=== PATIENT | female | born 2000 | race Caucasian/White ===

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

== ENCOUNTER 2018-10-19 06:46 | Day surgery (SDC) | payer BC ==
[~2018-10-19 06:46] MED LIST: Lactated Ringers 1,000 ML IV SCH; ceFAZolin 2 GM in Premix Bag 1 BAG IV ONE
[2018-10-19] MEDS ORDERED: Propofol 200 MG/20 ML SDV ONE (07:22)
[2018-10-19] MEDS ORDERED: fentaNYL 250 MCG/5 ML SDV ONE (07:22)
[2018-10-19] MEDS ORDERED: Lidocaine 2% 5 ML SDV ONE (07:24)
[2018-10-19] MEDS ORDERED: Ondansetron 4 MG/2 ML SDV IVPUSH ONE (07:27)
[2018-10-19] MEDS ORDERED: Meperidine PF 25 MG/ML Syringe IVPUSH ONE (07:27)
[2018-10-19] MEDS ORDERED: fentaNYL 100 MCG/2 ML SDV IVPUSH PRN (07:27)
[2018-10-19] MEDS ORDERED: HYDROmorphone 2 MG/ML SDV IVPUSH ONE (07:27)
[2018-10-19] MEDS ORDERED: Bupivacaine 0.25% 10 ML SDV ONE (07:29)
[2018-10-19] MEDS ORDERED: ceFAZolin/Dextrose,Iso-Osmotic 2 GM/50 ML Duplex Bag IV ONE (07:31)
[2018-10-19] MEDS ORDERED: Rocuronium 100 MG/10 ML Syringe ONE (07:33)
[2018-10-19] MEDS ORDERED: Ondansetron 4 MG/2 ML SDV ONE (07:40)
--- NOTE | 2018-10-19 07:42 | PCM.PREANE ---
Preanesthetic Assessment - Anesthesia/Transfusion/Family Hx Anesthesia History: Prior Anesthesia Without Reaction Family History of Anesthesia Reaction: No Transfusion History: No Prior Transfusion(s) - Review of Systems General: No Symptoms Pulmonary: No Symptoms Cardiovascular: No Symptoms Gastrointestinal: No Symptoms Neurological: No Symptoms Other: Reports: Anxiety - Physical Assessment NPO Status Date: 10/18/18 NPO Status Time: 19:00 O2 Sat by Pulse Oximetry: 100 Respiratory Rate: 16 Vital Signs: Last Vital Signs Temp 97.0 F 10/19/18 07:00 Pulse 73 10/19/18 07:00 Resp 16 10/19/18 07:00 BP 12/67 L 10/19/18 07:00 Pulse Ox 100 10/19/18 07:00 Height: 5 ft 3 in Weight: 82.1 kg ASA Class: 2 Mental Status: Alert & Oriented x3 Airway Class: Mallampati = 2 Dentition: Reports: Normal Dentition ROM/Head Extension: Full Lungs: Clear to Auscultation, Normal Respiratory Effort Cardiovascular: Regular Rate, Regular Rhythm - Lab Values: Laboratory Last Values WBC 6.40 K/uL (4.0-11.0) 10/19/18 07: RBC 4.04 M/uL (4.30-5.90) L 10/19/18 07: Hgb 12.0 g/dL (12.0-16.0) 10/19/18 07:19 Hct 35.7 % (36.0-46.0) L 10/19/18 07:19 MCV 88.4 fL (80.0-98.0) 10/19/18 07: MCH 29.7 pg (27.0-32.0) 10/19/18 07:19 MCHC 33.6 g/dL (31.0-37.0) 10/19/18 07:19 RDW Std Deviation 40.2 fl (28.0-62.0) 10/19/18 07: RDW Coeff of [place] 13 % (11.0-15.0) 10/19/18 07:19 Plt Count 267 K/uL (150-400) 10/19/18 07:19 MPV 10.20 fL (7.40-12.00) 10/19/18 07:19 Nucleated RBC % 0.0 /100WBC 10/19/18 07:19 Nucleated RBCs # 0 K/uL 10/19/18 07:19 - Allergies Allergies/Adverse Reactions: Allergies Allergy/AdvReac Type Severity Reaction Status Date / Time lactose Allergy Diarrhea Verified 10/14/18 13:26 - Blood Blood Available: No - Anesthesia Plan Pre-Op Medication Ordered: None - Acknowledgements Anesthesia Type Planned: General Anesthesia Pt an Appropriate Candidate for the Planned Anesthesia: Yes Alternatives and Risks of Anesthesia Discussed w Pt/Guardian: Yes Pt/Guardian Understands and Agrees with Anesthesia Plan: Yes Additional Comments: PMH: IBS-D, "vaping" PLAN: GET PreAnesthesia Questionnaire HEENT History: Reports: None Cardiovascular History: Reports: None Respiratory History: Reports: None Gastrointestinal History: Reports: Irritable Bowel Syndrome Genitourinary History: Reports: None CYBER SECURITY ARCHITECT History: Reports: None Musculoskeletal History: Reports: None Neurological History: Reports: None Psychiatric History: Reports: Anxiety, Depression Endocrine/Metabolic History: Reports: None, Obesity/BMI 30+ Hematologic History: Reports: None Immunologic History: Reports: None Oncologic (Cancer) History: Reports: None Dermatologic History: Reports: None - Infectious Disease History Infectious Disease History: Reports: Chicken Pox - Past Surgical History GI Surgical History: Reports: Cholecystectomy - SUBSTANCE USE Smoking Status *Q: Current Every Day Smoker Tobacco Use Within Last Twelve Months: Other (See Below) Other Tobacco Use Within Last Twelve Months: Vapes Recreational Drug Use History: No - HOME MEDS Home Medications: Home Meds medroxyPROGESTERone Acetate [Depo-Provera] 150 mg IM ASDIRECTED 10/14/18 [ History] - CURRENT (IN HOUSE) MEDS Current Meds: Current Medications Fentanyl (Sublimaze) 50 mcg IVPUSH Q5M PRN PRN Reason: Pain (severe 7-10) Stop: 10/20/18 07:28 Lactated Ringer's (Ringers, Lactated) 1,000 mls @ 100 mls/hr IV ASDIRECTED [facility] Last Admin: 10/19/18 07:15 Dose: 100 mls/hr Discontinued Medications Bupivacaine HCl (Sensorcaine-Mpf 0.25%) Confirm Administered Dose 20 ml .ROUTE .STK-MED ONE Stop: 10/19/18 07:30 Cefazolin Sodium/Dextrose (Ancef) Confirm Administered Dose 2 gm IV .STK-MED ONE Stop: 10/19/18 07:32 Fentanyl (Sublimaze) Confirm Administered Dose 250 mcg .ROUTE .STK-MED ONE Stop: 10/19/18 07:23 Hydromorphone HCl (Dilaudid) 2 mg IVPUSH ONETIME ONE Stop: 10/19/18 07:28 Cefazolin Sodium/Dextrose 2 gm (/ Premix) 50 mls @ 100 mls/hr IV ONETIME ONE Stop: 10/19/18 06:49 Lidocaine (Xylocaine-Mpf 2%) Confirm Administered Dose 5 ml .ROUTE .STK-MED ONE Stop: 10/19/18 07:25 Meperidine HCl (Demerol) 12.5 mg IVPUSH ONETIME ONE Stop: 10/19/18 07:28 Ondansetron HCl (Zofran) 4 mg IVPUSH ONETIME ONE Stop: 10/19/18 07:28 Propofol (Diprivan 20 Ml) Confirm Administered Dose 200 mg .ROUTE .STK-MED ONE Stop: 10/19/18 07:23 Rocuronium Pike (Zemuron) Confirm Administered Dose 100 mg .ROUTE .STK-MED ONE Stop: 10/19/18 07:34
[2018-10-19 07:45] LABS: CHLORIDE,CL 108 mmol/L (98-107); SODIUM,NA 143 mmol/L (136-145)
[2018-10-19] MEDS ORDERED: Midazolam 1 MG/ML 2 ML SDV ONE (08:17)
[2018-10-19] MEDS ORDERED: fentaNYL 100 MCG/2 ML SDV ONE (09:36)
[2018-10-19] MEDS ORDERED: Dexamethasone 4 MG/ML 5 ML MDV ONE (09:55)
[2018-10-19] MEDS ORDERED: Glycopyrrolate 0.2 MG/ML SDV ONE (10:02)
[2018-10-19] MEDS ORDERED: Neostigmine Methylsulfate 1 MG/ML 5 ML Syringe ONE (10:02)
[2018-10-19] MEDS ORDERED: HYDROmorphone 2 MG/ML Syringe ONE (10:31)
[2018-10-19] MEDS ORDERED: Ondansetron 4 MG/2 ML SDV IVPUSH PRN (10:44)
[2018-10-19] MEDS ORDERED: Morphine 4 MG/ML Syringe IVPUSH PRN (10:44)
[2018-10-19] MEDS ORDERED: Acetaminophen/oxyCODONE 325-5 MG Tab PO PRN ×2 (10:44)
[2018-10-19] MEDS ORDERED: Promethazine 25 MG/ML SDV IM PRN (10:44)
[2018-10-19] MEDS ORDERED: Acetaminophen 1,000 MG in Premix Bag 1 BAG IV ONE (10:46)
--- NOTE | 2018-10-19 12:13 | PCM.POSTAN ---
POST ANESTHESIA ASSESSMENT - MENTAL STATUS Mental Status: Alert, Oriented - RESPIRATORY Respiratory Status: Respiratory Rate WNL, Airway Patent, O2 Saturation Stable - CARDIOVASCULAR CV Status: Pulse Rate WNL, Blood Pressure Stable - GASTROINTESTINAL GI Status: No Symptoms - POST OP HYDRATION Hydration Status: Adequate & Stable
--- NOTE | 2018-10-19 12:14 | PCM48HPAN ---
Post Anesthesia Note - EVALUATION WITHIN 48HRS OF ANESTHETIC Vital Signs in Normal Range: Yes Patient Participated in Evaluation: Yes Respiratory Function Stable: Yes Airway Patent: Yes Cardiovascular Function Stable: Yes Hydration Status Stable: Yes Pain Control Satisfactory: Yes Nausea and Vomiting Control Satisfactory: Yes Mental Status Recovered: Yes Resp Rate: 14
--- NOTE | 2018-10-20 07:46 | OR ---
SURGEON: CHELSEY SMYTH DATE OF PROCEDURE: 10/19/2018 PREOPERATIVE DIAGNOSIS: Right ovarian cyst and abnormal uterine bleeding. POSTOPERATIVE DIAGNOSIS: Right ovarian cyst and abnormal uterine bleeding. PROCEDURE: D & C hysteroscopy Laparoscopic right ovarian cystectomy Pelvic Washing ANEASTHESIA General IV FLUIDS: 1500 mL. ESTIMATED BLOOD LOSS: 100 mL. BLOOD LOSS: 75 mL. NOTES AND FINDINGS: A 5 cm cyst noted in the right ovary, simple. Pelvic washing was also taken. Clear fluid filled simple cyst. EUA showed normal sized uterus and normal appearing cervix.The hysteroscopy showed normal uterine cavity, bilateral ostia also visualized BRIEF HISTORY ABOUT THE PATIENT: The patient was complaining of right pelvic pain, and she had ultrasound done that showed a right ovarian cyst. The cyst was followed up and remained stable. However, the patient was complaining of pain and desired to have ovarian cystectomy procedure. She was explained the risks, benefits, and alternatives. She also complained of having abnormal uterine bleeding since menarche. She was complained that anytime she stops taking control, bleeding was always abnormal and prolonged. So as a result, the hysteroscopy was performed to evaluate the abnormal uterine bleeding. DESCRIPTION OF PROCEDURE: The patient was taken to the operating room where general anesthesia was performed without difficulty. She was prepared and draped in the dorsal lithotomy position with Kael stirrups. The attention was paid to the perineum where the bivalve speculum was used to expose the cervix. The anterior lip of the cervix was grasped with the Allis and then was subsequently dilated to accommodate the hysteroscope. Hysteroscopy showed normal uterine cavity and normal ostia. As a result, attention was then paid to the abdomen. In the abdomen, an umbilical incision was made after injection of 0.25% Marcaine. The Veress needle was then used to enter the abdominal cavity, entry was confirmed by a low intraabdominal pressure and also pneumoperitoneum was obtained to 15mmhg. Then under direct visualization, the trocar was placed into the umbilical port . Then, the patient was placed in reverse Trendelenburg position. The right and left lower trocars were then placed 2 fingerbreadths above medial and superior to the anterior superior iliac spine, after which the cyst was positioned. The right ovarian cyst was identified. Then, the cystectomy was started, and unipolar scissors was used to make a linear incision on the cyst and the cut was then made, some spillage was noted. Then, the suction was ovary., the ovarian cortex was thin ,hence there was some leakage of the cyst. A suction was placed in the opening and then cyst aspirate was suctioned and sent to pathology. The cyst wall was grasped with the mary[place] forcep and stripped from the ovarian cortex with traction and countertraction. After stripping the cyst wall from the ovarian cortex, cyst wall was sent for pathology. The base of the cyst was then coagulated with the Kleppinger, hemostasis was noted, and pelvis was viewed closely and irrigated after the procedure and hemostasis was noted. The pneumoperitoneum was reduced to 5 to check for bleeding and there was no bleeding noted, so the procedure was then finished. The instruments were removed from the abdomen, and all instrument and pad counts were correct x2. The laparoscopic incision was then sutured. The patient tolerated the procedure well and was taken to the recovery room in stable condition. MARITZA BLUE /[id number] MTDFrancoise
--- NOTE | 2018-10-20 08:33 | PCM.OPNOTE ---
- General Post-Op/Procedure Note Date of Surgery/Procedure: 10/20/18 Operative Procedure(s): Hysteroscopy D & C. Laparoscopic right ovarian cystectomy Findings: EUA showed normal sized anteverted uterus, Hysteroscopy showed normal uterine cavity , Bilateral ostia visualized Laparoscopy showed normal sized uterus with right ovarian cyst . Left ovary appeared normal Pre Op Diagnosis: Symptomatic right ovarian cyst. Abnormal uterine bleeding Post-Op Diagnosis: same Anesthesia Technique: Other (see below) (General) Primary Surgeon: Ernestine Carballo Secondary Surgeon: Samira Toscano Pathology: Ovarian cyst wall Pelvic washing and cyst aspirate Fluid Replacement, Intraop: 1,500 EBL in mLs: 50 Complications: None Condition: Good
== END 2018-10-19 12:20 | disposition home or self-care (01) ==
LOC: MW.SDS 06:46
PROVIDERS: ATTEND Obstetrics & Gynecology
DX: D27.0 Benign neoplasm of right ovary (principal); N85.4 Malposition of uterus; F17.290 Nicotine dependence, other tobacco product, uncomplicated; Z79.899 Other long term (current) drug therapy
CPT/HCPCS: 36415; 58555; 58662; 80048; 81025; 85027; 86850; 86900; 86901; 88104; 88307; J0690; J1100; J1170; J2001; J2250; J2405; J2704; J3010; J3490; J7120; 00840

== ENCOUNTER 2019-02-14 23:03 | Emergency (ER) | payer BC ==
--- NOTE | 2019-02-14 23:17 | EDM.PDOC ---
ED HPI GENERAL MEDICAL PROBLEM - General Chief Complaint: ENT Problem Stated Complaint: TOOTH PAIN Time Seen by Provider: 02/14/19 23:17 Source of Information: Reports: Patient History Limitations: Reports: No Limitations - History of Present Illness INITIAL COMMENTS - FREE TEXT/NARRATIVE: HISTORY AND PHYSICAL: History of present illness: Patient is a 18-year-old female who presents to the ED today 5 days out from wisdom teeth removal. Patient states she had all of her with some teeth removed ' 2 on top and 2 on bottom. Patient states she ran out of Percocet last night and today has had 8 out of 10 pain which is worse on her bottom then the top. Patient states she has not taken any ibuprofen or Tylenol because she does not believe that these work for her. Patient denies any change in her pain from prior but states that since she ran out of Percocet, she feels like the pain is worse. Patient states she was also supposed to be taking amoxicillin but decided not to take it because it made her skin tingly. Patient states she has not received any other antibiotic but did inform the surgeon she could not take Amoxicillin. Patient states she has been able to eat and drink an all liquid diet as instructed by her surgeon. Patient denies any other symptoms or concerns at this time. Patient denies fever, chills, chest pain, shortness of breath, or cough. Denies headache, neck stiff ness, change in vision, syncope, or near syncope. Denies nausea, vomiting, abdominal pain, diarrhea, constipation, or dysuria. Has not noted any blood in urine or stool. Patient has been eating and drinking appropriately. Review of systems: As per history of present illness and below otherwise all systems reviewed and negative. Past medical history: As per history of present illness and as reviewed below otherwise noncontributory. Surgical history: As per history of present illness and as reviewed below otherwise noncontributory. Social history: See social history for further information Family history: As per history of present illness and as reviewed below otherwise noncontributory. Physical exam: General: Patient is alert, oriented, and in no acute distress. Patient sitting comfortably on exam table breathing comfortably. HEENT: Atraumatic, normocephalic, pupils equal and reactive bilaterally, negative for conjunctival pallor or scleral icterus, mucous membranes moist, TMs normal bilaterally, neck supple, nontender, trachea midline. Exam of area that was some teeth were removed is limited due to patient's discomfort. However , there is no obvious deformity of patient's complete face with no edema of the jawline or neck. Negative pain to palpation of the complete external jaw. Patient does have pain with range of motion of her TMJ joints but she is able to partially open so I'm somewhat able to visualize where the teeth were removed. There is no erythema or edema of the area where the teeth is removed. However, unable to fully assess this area as stated above. No drooling or trismus noted. No meningeal signs. No hot potato voice noted. Lungs: Clear to auscultation, breath sounds equal bilaterally, chest nontender. No stridor or workup breathing. Heart: S1S2, regular rate and rhythm without overt murmur Abdomen: Soft, nondistended, nontender. Negative for masses or hepatosplenomegaly. Negative for costovertebral tenderness. Pelvis: Stable nontender. Genitourinary: Deferred. Rectal: Deferred. Skin: Intact, warm, dry. No lesions or rashes noted. Extremities: Atraumatic, negative for cords or calf pain. Neurovascular unremarkable. Neuro: Awake, alert, oriented. Cranial nerves II through XII unremarkable. Cerebellum unremarkable. Motor and sensory unremarkable throughout. Exam nonfocal. Notes: Discussed the importance of calling the surgeon who removed her wisdom teeth in the morning when the clinic opens. Will give clindamycin antibiotic as patient did not tolerate her amoxicillin that she was given, as well as dental balls for pain. Voices understanding and is agreeable to plan of care. Denies any further questions or concerns at this time. Diagnostics: None Therapeutics: Dental balls Prescription: Clindamycin Impression: Post op dental pain H/O recent tooth removal Plan: 1. Take medication as prescribed. 2. Tylenol and/or ibuprofen as directed and as needed for pain management. 3. "Tooth Balls" have been given to you; apply along the gumline every 2-3 hours as needed. Do not swallow these; external use only. 4. Follow-up with your dentist/surgeon tomorrow morning. Call the clinic when they open. Return to the ED as needed and as discussed. Definitive disposition and diagnosis as appropriate pending reevaluation and review of above. dental area Pain Score (Numeric/FACES): 8 - Related Data Allergies Allergy/AdvReac Type Severity Reaction Status Date / Time amoxicillin Allergy Itching Verified 02/14/19 23:12 lactose Allergy Diarrhea Verified 02/14/19 23:12 Home Meds: Home Meds medroxyPROGESTERone Acetate [Depo-Provera] 150 mg IM ASDIRECTED 10/14/18 [ History] Acetaminophen/oxyCODONE [Percocet 325-5 MG] 1 - 2 tab PO Q4H PRN 3 Days #15 tablet 10/19/18 [Rx] Past Medical History HEENT History: Reports: None Cardiovascular History: Reports: None Respiratory History: Reports: None Gastrointestinal History: Reports: Irritable Bowel Syndrome Genitourinary History: Reports: None ESTHETICIAN/SKIN THERAPIST History: Reports: None Musculoskeletal History: Reports: None Neurological History: Reports: None Psychiatric History: Reports: Anxiety, Depression Endocrine/Metabolic History: Reports: None, Obesity/BMI 30+ Hematologic History: Reports: None Immunologic History: Reports: None Oncologic (Cancer) History: Reports: None Dermatologic History: Reports: None - Infectious Disease History Infectious Disease History: Reports: Chicken Pox - Past Surgical History GI Surgical History: Reports: Cholecystectomy Social & Family History - Family History Family Medical History: Noncontributory - Caffeine Use Caffeine Use: Reports: Energy Drinks ED ROS GENERAL - Review of Systems Review Of Systems: ROS reveals no pertinent complaints other than HPI. ED EXAM, GENERAL - Physical Exam Exam: See Below (see dictation) Course - Vital Signs Last Recorded V/S: Last Vital Signs Temp 36.1 C 02/14/19 23:13 Pulse 82 02/14/19 23:13 Resp 18 02/14/19 23:13 BP 113/80 02/14/19 23:13 Pulse Ox 98 02/14/19 23:13 - Orders/Labs/Meds Meds: Medications Discontinued Medications Generic Name Dose Route Start Last Admin Trade Name Freq PRN Reason Stop Dose Admin Benzocaine 2 each 02/14/19 23:23 Hurricaine One 20% MUCMEM 02/14/19 23:24 ONETIME ONE Clindamycin Palmitate HCl 300 mg 02/14/19 23:25 Cleocin PO 02/14/19 23:26 NOW STA Lidocaine HCl 15 ml 02/14/19 23:23 Xylocaine 2% Viscous PO 02/14/19 23:24 ONETIME ONE Departure - Departure Time of Disposition: 23:31 Disposition: Home, Self-Care 01 Clinical Impression: Pain, dental, History of recent surgery - Discharge Information Referrals: PCP,None [Primary Care Provider] - Forms: ED Department Discharge Additional Instructions: The following information is given to patients seen in the emergency department who are being discharged to home. This information is to outline your options for follow-up care. We provide all patients seen in our emergency department with a follow-up referral. The need for follow-up, as well as the timing and circumstances, are variable depending upon the specifics of your emergency department visit. If you don't have a primary care physician on staff, we will provide you with a referral. We always advise you to contact your personal physician following an emergency department visit to inform them of the circumstance of the visit and for follow-up with them and/or the need for any referrals to a consulting specialist. The emergency department will also refer you to a specialist when appropriate. This referral assures that you have the opportunity for follow-up care with a specialist. All of these measure are taken in an effort to provide you with optimal care, which includes your follow-up. Under all circumstances we always encourage you to contact your private physician who remains a resource for coordinating your care. When calling for follow-up care, please make the office aware that this follow-up is from your recent emergency room visit. If for any reason you are refused follow-up, please contact the [facility] Emergency Department at and asked to speak to the emergency department charge nurse. [facility] [address] [place] [id number] [id number] 1. Take medication as prescribed. 2. Tylenol and/or ibuprofen as directed and as needed for pain management. 3. "Tooth Balls" have been given to you; apply along the gumline every 2-3 hours as needed. Do not swallow these; external use only. 4. Follow-up with your dentist/surgeon tomorrow morning. Call the clinic when they open. Return to the ED as needed and as discussed.
[2019-02-14] MEDS ORDERED: Lidocaine 2% Viscous Solution 15 ML Cup PO ONE (23:23)
[2019-02-14] MEDS ORDERED: Benzocaine 20% Topical Spray UD MUCMEM ONE (23:23)
[2019-02-14] MEDS ORDERED: Clindamycin Palmitate Solution 75 MG/5 ML 100 ML Bottle PO STA (23:25)
== END 2019-02-14 23:56 | disposition home or self-care (01) ==
LOC: MW.ED 23:03
DX: G89.18 Other acute postprocedural pain (principal); K08.89 Other specified disorders of teeth and supporting structures; Z88.1 Allergy status to other antibiotic agents; Z91.011 Allergy to milk products; Z90.49 Acquired absence of other specified parts of digestive tract; E66.9 Obesity, unspecified; Z98.818 Other dental procedure status
CPT/HCPCS: 99282; A9270; 99283

== ENCOUNTER 2020-01-23 22:45 | Emergency (ER) | payer BC ==
[2020-01-23] MEDS ORDERED: Metoclopramide 10 MG/2 ML SDV IM ONE (23:14)
[2020-01-23] MEDS ORDERED: Acetaminophen/Butalbital/Caffeine 325-50-40 MG Tab PO ONE (23:14)
[2020-01-23] MEDS ORDERED: Ketorolac 30 MG/ML SDV IM ONE (23:15)
--- NOTE | 2020-01-23 23:17 | EDM.PDOC ---
ED HPI GENERAL MEDICAL PROBLEM - General Chief Complaint: Headache Stated Complaint: MIGRAINE Time Seen by Provider: 01/23/20 22:55 - History of Present Illness INITIAL COMMENTS - FREE TEXT/NARRATIVE: History of present illness: [] Is in complaint she has migraine. She says he woke up 3 days ago with a headache that is getting worse. It starts in the right posterior neck and wraps over the forehead toward the right eye. It is constant and severe. Associated with mild photophobia and sensitivity to sound. She however does not have nausea. She does not have any neurologic findings or fever. She has had these headaches in the past. Her mother has a history of migraine and is on medicine to try to prevent them. The patient herself is only taking Advil and has never seen a medical doctor other than in the emergency department for her headaches. She is on a long-acting hormone contraception. She does not menstruate. Review of systems: As per history of present illness and below otherwise all systems reviewed and negative. Past medical history: As per history of present illness and as reviewed below otherwise noncontributory. Surgical history: As per history of present illness and as reviewed below otherwise noncontributory. Social history: No reported history of drug or alcohol abuse. Family history: As per history of present illness and as reviewed below otherwise noncontributory. Physical exam: Constitutional - well developed, well-nourished and in no acute distress HEENT - normocephalic, no evidence of trauma - external nose and mouth normal - no mass in neck and no JVD - mucosae moist. The patient has a supple neck EYES - full EOM, PERRL, no icterus - no evidence of inflammation, injection, or drainage Respiratory - no respiratory distress, equal bilateral expansion, lungs clear to auscultation and no abnormal lung sounds Cardiovascular - Regular Rhythm with S1 and S2 appreciated and no murmur, gallop or rub. Peripheral pulses symmetrically normal in all four extremities GI - abdomen soft without distension or organomegaly - normal bowel sounds - no guard or rebound Musculoskeletal no gross deformity of long bones or joints - no tenderness, swelling or edema Neurologic - Alert and oriented times four - CN II-XII grossly intact - motor sensory and coordination symmetrically normal Psychiatric - appropriate mood and affect with normal thought content Hematologic - No petechiae or purpura - mucosa appropriate color and sclera not pale - normal nail bed color and refill Integument - no rash or evidence of trauma - normal turgor Diagnostics: [] Therapeutics: [] Impression: [] Plan: [] Definitive disposition and diagnosis as appropriate pending reevaluation and review of above. Treatments GUEST SERVICE HOST: Reports: Other (see below) Other Treatments GUEST SERVICE HOST: Motrin,orlissa 150mg.Cefdinur Bilateral Posterior Headache Pain Score (Numeric/FACES): 8 - Related Data Allergies Allergy/AdvReac Type Severity Reaction Status Date / Time amoxicillin Allergy Itching Verified 02/14/19 23:12 lactose Allergy Diarrhea Verified 02/14/19 23:12 Home Meds: Home Meds medroxyPROGESTERone Acetate [Depo-Provera] 150 mg IM ASDIRECTED 10/14/18 [History] Acetaminophen/oxyCODONE [Percocet 325-5 MG] 1 - 2 tab PO Q4H PRN 3 Days #15 tablet 10/19/18 [Rx] Acetaminophen/Butalbital/Caff [Fioricet 325-50-40 MG] 1 each PO TID PRN #14 tab 01/24/20 [Rx] Past Medical History HEENT History: Reports: None Cardiovascular History: Reports: None Respiratory History: Reports: None Gastrointestinal History: Reports: Irritable Bowel Syndrome Genitourinary History: Reports: None AERODYNAMICS ENGINEER History: Reports: None Other AERODYNAMICS ENGINEER History: Ovarian cyst removal Musculoskeletal History: Reports: None Neurological History: Reports: None Psychiatric History: Reports: Anxiety, Depression Endocrine/Metabolic History: Reports: None, Obesity/BMI 30+ Hematologic History: Reports: None Immunologic History: Reports: None Oncologic (Cancer) History: Reports: None Dermatologic History: Reports: None - Infectious Disease History Infectious Disease History: Reports: Chicken Pox - Past Surgical History Head Surgeries/Procedures: Reports: None GI Surgical History: Reports: Cholecystectomy Social & Family History - Family History Family Medical History: Noncontributory - Tobacco Use Smoking Status *Q: Never Smoker Second Hand Smoke Exposure: No - Caffeine Use Caffeine Use: Reports: Energy Drinks - Recreational Drug Use Recreational Drug Use: No ED ROS GENERAL - Review of Systems Review Of Systems: Comprehensive ROS is negative, except as noted in HPI. ED EXAM, GENERAL - Physical Exam Exam: See Below Free Text/Narrative:: My physical exam as in the HPI Course - Vital Signs Last Recorded V/S: Last Vital Signs Temp 96.8 F L 01/23/20 22:56 Pulse 82 01/24/20 00:11 Resp 17 01/24/20 00:11 BP 117/77 01/24/20 00:11 Pulse Ox 98 01/24/20 00:11 - Orders/Labs/Meds Meds: Medications Discontinued Medications Generic Name Dose Route Start Last Admin Trade Name Freq PRN Reason Stop Dose Admin Acetaminophen/Butalbital/Caffeine 1 tab 01/23/20 23:14 01/23/20 23:35 Fioricet 325-50-40 Mg PO 01/23/20 23:15 1 tab ONETIME ONE Administration Sodium Chloride 1,000 mls @ 999 mls/hr 01/23/20 23:55 Normal Saline IV 01/24/20 00:55 .BOLUS ONE Ketorolac Tromethamine 30 mg 01/23/20 23:15 01/23/20 23:33 Toradol IM 01/23/20 23:16 30 mg ONETIME ONE Administration Metoclopramide HCl 10 mg 01/23/20 23:14 01/23/20 23:31 Reglan IM 01/23/20 23:15 10 mg ONETIME ONE Administration Departure - Departure Time of Disposition: 00:14 Disposition: Home, Self-Care 01 Condition: Good Clinical Impression: Migraine - Discharge Information Prescriptions: Acetaminophen/Butalbital/Caff [Fioricet 325-50-40 MG] 1 each PO TID PRN #14 tab PRN Reason: Pain (Moderate 4-6) Instructions: Migraine Headache, [id number] Referrals: PCP,None [Primary Care Provider] - Forms: ED Department Discharge Additional Instructions: The following information is given to patients seen in the emergency department who are being discharged to home. This information is to outline your options for follow-up care. We provide all patients seen in our emergency department with a follow-up referral. The need for follow-up, as well as the timing and circumstances, are variable depending upon the specifics of your emergency department visit. If you don't have a primary care physician on staff, we will provide you with a referral. We always advise you to contact your personal physician following an emergency department visit to inform them of the circumstance of the visit and for follow-up with them and/or the need for any referrals to a consulting specialist. The emergency department will also refer you to a specialist when appropriate. This referral assures that you have the opportunity for follow-up care with a specialist. All of these measure are taken in an effort to provide you with optimal care, which includes your follow-up. Under all circumstances we always encourage you to contact your private physician who remains a resource for coordinating your care. When calling for follow-up care, please make the office aware that this follow-up is from your recent emergency room visit. If for any reason you are refused follow-up, please contact the [facility] Emergency Department at and asked to speak to the emergency department charge nurse. [facility] [address] [place] [phone] [address] Sepsis Event Note (ED) - Evaluation Sepsis Screening Result: No Definite Risk - Focused Exam Vital Signs: Vital Signs Temp Pulse Resp BP Pulse Ox 01/24/20 00:11 82 17 117/77 98 01/23/20 22:56 96.8 F L 85 16 124/80
[2020-01-23] MEDS ORDERED: Sodium Chloride 0.9% 1,000 ML IV ONE (23:55)
== END 2020-01-24 00:26 | disposition home or self-care (01) ==
LOC: MW.ED 22:45
DX: G43.909 Migraine, unspecified, not intractable, without status migrainosus (principal); E66.9 Obesity, unspecified; Z68.41 Body mass index [BMI] 40.0-44.9, adult; Z88.1 Allergy status to other antibiotic agents; Z91.011 Allergy to milk products
CPT/HCPCS: 96372; 99284; A9270; J1885; J2765; 99283

== ENCOUNTER 2020-06-08 21:27 | Emergency (ER) | payer BC ==
[2020-06-08] MEDS ORDERED: Clindamycin HCl 150 MG Cap PO ONE (21:48)
--- NOTE | 2020-06-08 21:51 | EDM.PDOC ---
ED HPI GENERAL MEDICAL PROBLEM - General Chief Complaint: ENT Problem Stated Complaint: sore throat Time Seen by Provider: 06/08/20 21:40 Source of Information: Reports: Patient History Limitations: Reports: No Limitations - History of Present Illness INITIAL COMMENTS - FREE TEXT/NARRATIVE: HISTORY AND PHYSICAL: History of present illness: Patient is a 20-year-old female who presents to the emergency room with complaints of sore throat. She states she frequently gets strep throat and is concerned that she needs treatment with antibiotic. Patient denies any fever, chills, headache, change in vision, syncope or near syncope. Denies any chest pain, back pain, shortness of breath or cough. Denies any GI or symptoms. Has not had any difficulty with swallowing or speech. Patient has been eating and drinking appropriately. She had no known COVID exposures nor concern for COVID at this time. Review of systems: As per history of present illness and below otherwise all systems reviewed and negative. Past medical history: As per history of present illness and as reviewed below otherwise noncontributory. Surgical history: As per history of present illness and as reviewed below otherwise noncontributory. Social history: See social history for further information Family history: As per history of present illness and as reviewed below otherwise noncontribut ory. Physical exam: General: Well developed and well nourished. Alert and orientated x 3. Nontoxic in appearance and in no acute distress. Vital signs are stable and have been reviewed by me. Nursing notes were reviewed. HEENT: Atraumatic, normocephalic, pupils equal and reactive bilaterally, negative for conjunctival pallor or scleral icterus, mucous membranes moist, TMs normal bilaterally, throat erythematous with exudate bilaterally no fullness or pillar shifting, neck supple, nontender, trachea midline. No drooling or trismus noted. No meningeal signs. No hot potato voice noted. Lungs: Clear to auscultation, breath sounds equal bilaterally. Normal work of breathing, no accessory muscles used. Heart: S1S2, regular rate and rhythm without overt murmur Abdomen: Soft, nondistended, nontender. Negative for masses or hepatosplenomegaly. Negative for costovertebral tenderness. Skin: Intact, warm, dry. No lesions or rashes noted. Hematologic: No petechiae or purpra. Mucosa appropriate color and normal nail bed color and refill. Extremities: Atraumatic, moves all extremities per self without difficulty or deficits, negative for cords or calf pain. Neurovascular unremarkable. Neuro: Awake, alert, oriented. Cranial nerves II through XII unremarkable. Cerebellum unremarkable. Motor and sensory unremarkable throughout. Exam nonfocal. Psychiatric: Mood and affect are appropriate. Normal thought process. Answering questions appropriately. Notes: Patient does have an amoxicillin allergy, has been treated with clindamycin successfully in the past. She is requesting some Diflucan as she does routinely get yeast infections with any antibiotic use. I have talked with the patient about today's findings, in addition to providing specific details for plan of care. Reassessment at the time of disposition demonstrates that the patient is in no acute distress. The patient is stable for discharge, counseling was provided and we discussed in great detail signs and symptoms that would prompt them to return to the Emergency Department. Medication, follow up and supportive care measures were reviewed and discussed. Voices understanding and is agreeable to plan of care. Denies any further questions or concerns at this time. Diagnostics: None Therapeutics: Clindamycin Prescription: Clindamycin Impression: Pharyngitis Plan: 1. Take your medication as directed. Good handwashing and contact precautions as we discussed. 2. Warm Salt water gargles (rinse and spit) 3-4 x daily. Please get a new tooth brush after completion of your medication 3. Tylenol and or ibuprofen as needed for pain management. 4. Follow-up with your primary care provider in the next 1-2 days. Return to the ED as needed and as discussed. Definitive disposition and diagnosis as appropriate pending reevaluation and review of above. Throat Pain Score (Numeric/FACES): 4 - Related Data Allergies Allergy/AdvReac Type Severity Reaction Status Date / Time amoxicillin Allergy Itching Verified 06/08/20 21:41 lactose Allergy Diarrhea Verified 06/08/20 21:41 Home Meds: Home Meds medroxyPROGESTERone Acetate [Depo-Provera] 150 mg IM ASDIRECTED 10/14/18 [History] Fluconazole [Diflucan] 150 mg PO ONETIME #2 tab 06/08/20 [Rx] clindamycin HCL [Clindamycin HCl] 300 mg PO TID 10 Days #29 capsule 06/08/20 [Rx] Past Medical History HEENT History: Reports: None Cardiovascular History: Reports: None Respiratory History: Reports: None Gastrointestinal History: Reports: Irritable Bowel Syndrome Genitourinary History: Reports: None NON DESTRUCTIVE TESTING INSPECTOR History: Reports: None Other NON DESTRUCTIVE TESTING INSPECTOR History: Ovarian cyst removal Musculoskeletal History: Reports: None Neurological History: Reports: None Psychiatric History: Reports: Anxiety, Depression Endocrine/Metabolic History: Reports: None, Obesity/BMI 30+ Hematologic History: Reports: None Immunologic History: Reports: None Oncologic (Cancer) History: Reports: None Dermatologic History: Reports: None - Infectious Disease History Infectious Disease History: Reports: Chicken Pox - Past Surgical History Head Surgeries/Procedures: Reports: None GI Surgical History: Reports: Cholecystectomy Social & Family History - Family History Family Medical History: No Pertinent Family History - Caffeine Use Caffeine Use: Reports: Energy Drinks ED ROS ENT - Review of Systems Review Of Systems: Comprehensive ROS is negative, except as noted in HPI. ED EXAM, ENT - Physical Exam Exam: See Below (See dictation) Course - Vital Signs Last Recorded V/S: Last Vital Signs Temp 98.2 F 06/08/20 21:38 Pulse 88 06/08/20 21:38 Resp 18 06/08/20 21:38 BP 128/64 06/08/20 21:38 Pulse Ox 98 06/08/20 21:38 Departure - Departure Time of Disposition: 21:51 Disposition: Home, Self-Care 01 Clinical Impression: Pharyngitis Qualifiers: Pharyngitis/tonsillitis etiology: unspecified etiology Qualified Code(s): J02.9 - Acute pharyngitis, unspecified - Discharge Information Prescriptions: clindamycin HCL [Clindamycin HCl] 300 mg PO TID 10 Days #29 capsule Fluconazole [Diflucan] 150 mg PO ONETIME #2 tab Instructions: Strep Throat, Adult, [id number] Referrals: PCP,None [Primary Care Provider] - Additional Instructions: The following information is given to patients seen in the emergency department who are being discharged to home. This information is to outline your options for follow-up care. We provide all patients seen in our emergency department with a follow-up referral. The need for follow-up, as well as the timing and circumstances, are variable depending upon the specifics of your emergency department visit. If you don't have a primary care physician on staff, we will provide you with a referral. We always advise you to contact your personal physician following an emergency department visit to inform them of the circumstance of the visit and for follow-up with them and/or the need for any referrals to a consulting specialist. The emergency department will also refer you to a specialist when appropriate. This referral assures that you have the opportunity for follow-up care with a specialist. All of these measure are taken in an effort to provide you with optimal care, which includes your follow-up. Under all circumstances we always encourage you to contact your private physician who remains a resource for coordinating your care. When calling for follow-up care, please make the office aware that this follow-up is from your recent emergency room visit. If for any reason you are refused follow-up, please contact the [facility] Emergency Department at and asked to speak to the emergency department charge nurse. [facility] [address] [place] [address] [place] [address] Thank you for choosing the [facility] emergency department in [place] for your medical needs today. It was a pleasure caring for you. Today you were seen in the emergency department for strep throat. 1. Take your medication as directed. Good handwashing and contact precautions as we discussed. 2. Warm Salt water gargles (rinse and spit) 3-4 x daily. Please get a new tooth brush after completion of your medication 3. Tylenol and or ibuprofen as needed for pain management. 4. Follow-up with your primary care provider in the next 1-2 days. Return to the ED as needed and as discussed. Sepsis Event Note (ED) - Evaluation Sepsis Screening Result: No Definite Risk - Focused Exam Vital Signs: Vital Signs Temp Pulse Resp BP Pulse Ox 06/08/20 21:38 98.2 F 88 18 128/64 98
== END 2020-06-08 22:20 | disposition home or self-care (01) ==
LOC: MW.ED 21:27
DX: J02.9 Acute pharyngitis, unspecified (principal); Z88.1 Allergy status to other antibiotic agents; Z91.048 Other nonmedicinal substance allergy status
CPT/HCPCS: 99282; A9270

== ENCOUNTER 2020-09-20 21:53 | Emergency (ER) | payer BC ==
--- NOTE | 2020-09-20 22:52 | EDM.PDOC ---
ED HPI GENERAL MEDICAL PROBLEM - General Chief Complaint: ENT Problem Stated Complaint: sore throat Time Seen by Provider: 09/20/20 22:00 - History of Present Illness INITIAL COMMENTS - FREE TEXT/NARRATIVE: History of present illness: [] Review of systems: As per history of present illness and below otherwise all systems reviewed and negative. Past medical history: As per history of present illness and as reviewed below otherwise noncontributory. Has a sore throat with 3 days. Its moderately severe. She is able to eat and drink. Patient has minimal cough. She also has some gland swelling in her neck. She does not have any other systemic signs of infection and she does not have any problem with her appetite eating bowels or bladder habits. Is not nauseated. Surgical history: As per history of present illness and as reviewed below otherwise noncontributory. Social history: No reported history of drug or alcohol abuse. Family history: As per history of present illness and as reviewed below otherwise non contributory. Physical exam: Constitutional - well developed, well-nourished and in no acute distress HEENT - normocephalic, no evidence of trauma - external nose and mouth normal - no mass in neck and no JVD - mucosae moist. She has tender lymphadenopathy in the submandibular chain. Her pharynx is hyperemic beefy red and has some purulence. She has no trismus. Her voice is normal. She swallows her own secretions. EYES - full EOM, PERRL, no icterus - no evidence of inflammation, injection, or drainage Respiratory - no respiratory distress, equal bilateral expansion, lungs clear to auscultation and no abnormal lung sounds Cardiovascular - Regular Rhythm with S1 and S2 appreciated and no murmur, gallop or rub. GI - abdomen soft without distension or organomegaly - normal bowel sounds - no guard or rebound Musculoskeletal no gross deformity of long bones or joints - no tenderness, swelling or edema Neurologic - Alert and oriented times four - CN II-XII grossly intact - motor sensory and coordination symmetrically normal Psychiatric - appropriate mood and affect with normal thought content Hematologic - No petechiae or purpura - mucosa appropriate color and sclera not pale - normal nail bed color and refill Integument - no rash or evidence of trauma - normal turgor Diagnostics: [] Therapeutics: [] Impression: [] Plan: [] Definitive disposition and diagnosis as appropriate pending reevaluation and review of above. throat Pain Score (Numeric/FACES): 5 - Related Data Allergies Allergy/AdvReac Type Severity Reaction Status Date / Time amoxicillin Allergy Itching Verified 09/20/20 22:15 lactose Allergy Diarrhea Verified 09/20/20 22:15 Home Meds: Home Meds . [No Known Home Meds] 09/20/20 [History] Past Medical History - Past Health History Medical/Surgical History: Denies Medical/Surgical History HEENT History: Reports: None Cardiovascular History: Reports: None Respiratory History: Reports: None Gastrointestinal History: Reports: Irritable Bowel Syndrome Genitourinary History: Reports: None OVERLOCK HEMMER History: Reports: None Other OVERLOCK HEMMER History: Ovarian cyst removal Musculoskeletal History: Reports: None Neurological History: Reports: None Psychiatric History: Reports: Anxiety, Depression Endocrine/Metabolic History: Reports: None, Obesity/BMI 30+ Hematologic History: Reports: None Immunologic History: Reports: None Oncologic (Cancer) History: Reports: None Dermatologic History: Reports: None - Infectious Disease History Infectious Disease History: Reports: Chicken Pox - Past Surgical History Head Surgeries/Procedures: Reports: None HEENT Surgical History: Reports: Oral Surgery GI Surgical History: Reports: Cholecystectomy Female Surgical History: Reports: Other (See Below) Other Female Surgeries/Procedures: Cyst removal Social & Family History - Family History Family Medical History: No Pertinent Family History - Caffeine Use Caffeine Use: Reports: None - Recreational Drug Use Recreational Drug Use: No ED ROS GENERAL - Review of Systems Review Of Systems: Comprehensive ROS is negative, except as noted in HPI. ED EXAM, GENERAL - Physical Exam Exam: See Below Free Text/Narrative:: Physical exam is in the HPI Course - Vital Signs Last Recorded V/S: Last Vital Signs Temp 36.1 C 09/20/20 22:09 Pulse 84 09/20/20 22:09 Resp 16 09/20/20 22:09 BP 119/74 09/20/20 22:09 Pulse Ox 96 09/20/20 22:09 - Orders/Labs/Meds Labs: Laboratory Tests 09/20/20 09/20/20 09/20/20 Range/Units 22:13 23:08 23:08 WBC 10.01 (4.0-11.0) K/uL RBC 4.56 (4.30-5.90) M/uL Hgb 13.4 (12.0-16.0) g/dL Hct 40.8 (36.0-46.0) % MCV 89.5 (80.0-98.0) fL MCH 29.4 (27.0-32.0) pg MCHC 32.8 (31.0-37.0) g/dL RDW Std Deviation 40.4 (28.0-62.0) fl RDW Coeff of [place] 13 (11.0-15.0) % Plt Count 306 (150-400) K/uL MPV 10.60 (7.40-12.00) fL Neut % (Auto) 61.7 (48.0-80.0) % Lymph % (Auto) 28.1 (16.0-40.0) % [place] % (Auto) 9.0 (0.0-15.0) % Eos % (Auto) 0.9 (0.0-7.0) % Baso % (Auto) 0.3 (0.0-1.5) % Neut # (Auto) 6.2 H (1.4-5.7) K/uL Lymph # (Auto) 2.8 H (0.6-2.4) K/uL [place] # (Auto) 0.9 H (0.0-0.8) K/uL Eos # (Auto) 0.1 (0.0-0.7) K/uL Baso # (Auto) 0.0 (0.0-0.1) K/uL Nucleated RBC % 0.0 /100WBC Nucleated RBCs # 0 K/uL Monoscreen NEGATIVE (NEG) Group A Strep (PCR) NOT DETECTED (NOT DETECT) Departure - Departure Time of Disposition: 23:54 Disposition: Home, Self-Care 01 Condition: Good Clinical Impression: Acute viral pharyngitis - Discharge Information Instructions: Sore Throat, [id number] Referrals: PCP,None [Primary Care Provider] - Forms: ED Department Discharge Additional Instructions: Warm salt water gargles are advised. This is sometimes not palatable so chicken soup and other salty hot fluids are advised. You can use Cepastat or Cepacol spray or lozenges for pain. [facility] [address] [place] [id number] [facility] [address] [place] [id number] The following information is given to patients seen in the emergency department who are being discharged to home. This information is to outline your options for follow-up care. We provide all patients seen in our emergency department with a follow-up referral. The need for follow-up, as well as the timing and circumstances, are variable depending upon the specifics of your emergency department visit. If you don't have a primary care physician on staff, we will provide you with a referral. We always advise you to contact your personal physician following an emergency department visit to inform them of the circumstance of the visit and for follow-up with them and/or the need for any referrals to a consulting specialist. The emergency department will also refer you to a specialist when appropriate. This referral assures that you have the opportunity for follow-up care with a specialist. All of these measure are taken in an effort to provide you with optimal care, which includes your follow-up. Under all circumstances we always encourage you to contact your private physician who remains a resource for coordinating your care. When calling for follow-up care, please make the office aware that this follow-up is from your recent emergency room visit. If for any reason you are refused follow-up, please contact the [facility] Emergency Department at and asked to speak to the emergency department charge nurse. Sepsis Event Note (ED) - Evaluation Sepsis Screening Result: No Definite Risk - Focused Exam Vital Signs: Vital Signs Temp Pulse Resp BP Pulse Ox 09/20/20 22:09 36.1 C 84 16 119/74 96
== END 2020-09-21 00:15 | disposition home or self-care (01) ==
LOC: MW.ED 21:53
DX: J02.9 Acute pharyngitis, unspecified (principal); E66.9 Obesity, unspecified; Z68.41 Body mass index [BMI] 40.0-44.9, adult; Z88.0 Allergy status to penicillin; Z91.011 Allergy to milk products
CPT/HCPCS: 36415; 85025; 86308; 87651-QW; 99282; 99283

== ENCOUNTER 2021-04-22 00:58 | Emergency (ER) | payer BC ==
[2021-04-22] MEDS ORDERED: Ibuprofen 600 MG Tab PO ONE (01:34)
--- NOTE | 2021-04-22 01:48 | EDM.PDOC ---
ED HPI GENERAL MEDICAL PROBLEM - General Chief Complaint: Lower Extremity Injury/Pain Stated Complaint: LEFT KNEE PAIN Time Seen by Provider: 04/22/21 01:28 - History of Present Illness INITIAL COMMENTS - FREE TEXT/NARRATIVE: HISTORY AND PHYSICAL: History of present illness: This a 21-year-old female who presents ER today secondary to pain to her left knee that occurred after falling. Patient ports that she was running a race when she was tripped accidentally and fell to the ground. Patient reports that it felt like her knee popped out and someone straighten out her knee and popped it back in. Patient denies any head trauma or head injury. Patient has any loss of consciousness. Patient has any nausea vomiting, diarrhea, seizure, frequency, urgency. Patient has any pain to her ankles or hip or other joints after the fall. Review of systems: As per history of present illness and below otherwise all systems reviewed and negative. Past medical history: As per history of present illness and as reviewed below otherwise noncontributory. Surgical history: As per history of present illness and as reviewed below otherwise noncontributory. Social history: No reported history of drug abuse. Family history: As per history of present illness and as reviewed below otherwise noncontributory. Physical exam: This patient was seen and evaluated during the 2019 SARS-CoV-2 novel coronavirus pandemic period. Community viral transmission is ongoing at time of this encounter and the emergency department is operating under pandemic response procedures. Constitutional: Patient is oriented to person, place, and time. Appears well- developed and well-nourished. No distress. HEENT: Moist mucous membranes Head: Normocephalic and atraumatic Eyes: Right eye exhibits no discharge. Left eye exhibits no discharge. No scleral icterus Neck: Normal range of motion. No tracheal deviation present. Cardiovascular: Normal rate and regular rhythm. Pulmonary: Effort normal, no respiratory distress. Abdominal: No distention Musculoskeletal: Normal range of motion Neurologic: Alert and oriented to person, place and time. Skin: [place], warm and dry. Psychiatric: Normal mood and affect. Behavior is normal. Judgment and thought content normal. Nursing note and vital signs have been reviewed Patient's ER physical exam is significant for tenderness to palpation to her left knee with pain greatest on medial stressor. Patient has no ligamentous laxity. Patient's patella is in appropriate position. Patient has no bony deformity. Patient has no joint effusion, patella is not ballotable. Diagnostics: Left knee x-ray: No acute fracture or dislocation. No effusion identified. Therapeutics: Ibuprofen 600 mg p.o. Assessment and plan: 21-year-old female who presents ER today secondary to injury to her left knee. Patient's x-rays negative for any acute injury. Patient has no ligamentous laxity. Patient is neurovascularly intact distally. Patient be discharged home with a prescription for ibuprofen. rme note: Patient likely has a ligamentous injury to the left knee. Patient will have a knee immobilizer placed to help with healing of the ligamentous injury. Patient like to have the knee immobilizer in place for 1 week. Reassessment at the time of disposition demonstrates that the patient is in no acute distress. The patient has remained stable throughout the entire ED visit and is without objective evidence for acute process requiring urgent intervention or hospitalization. The patient is stable for discharge, counseling is provided as documented above, discussed symptomatic treatment and specific conditions for return. I have spoken with the patient/caregiver and discussed todays findings, in addition to providing specific details for the plan of care. Questions are answered and there is agreement with the plan. Definitive disposition and diagnosis as appropriate pending reevaluation and review of above. Left Knee Pain Score (Numeric/FACES): 8 - Related Data Allergies Allergy/AdvReac Type Severity Reaction Status Date / Time amoxicillin Allergy Itching Verified 04/22/21 01:32 lactose Allergy Diarrhea Verified 04/22/21 01:32 Home Meds: Home Meds Ibuprofen 600 mg PO Q6HR PRN #30 tablet 04/22/21 [Rx] Past Medical History - Past Health History Medical/Surgical History: Denies Medical/Surgical History HEENT History: Reports: None Cardiovascular History: Reports: None Respiratory History: Reports: None Gastrointestinal History: Reports: Irritable Bowel Syndrome Genitourinary History: Reports: None MEAT STRINGER History: Reports: None Other MEAT STRINGER History: Ovarian cyst removal Musculoskeletal History: Reports: None Neurological History: Reports: None Psychiatric History: Reports: Anxiety, Depression Endocrine/Metabolic History: Reports: Obesity/BMI 30+ Hematologic History: Reports: Other (See Below) Other Hematologic History: on txa Immunologic History: Reports: None Oncologic (Cancer) History: Reports: None Dermatologic History: Reports: None - Infectious Disease History Infectious Disease History: Reports: Chicken Pox - Past Surgical History Head Surgeries/Procedures: Reports: None HEENT Surgical History: Reports: Oral Surgery GI Surgical History: Reports: Cholecystectomy Female Surgical History: Reports: Other (See Below) Other Female Surgeries/Procedures: Cyst removal Social & Family History - Family History Family Medical History: No Pertinent Family History - Tobacco Use Tobacco Use Status *Q: Never Tobacco User Second Hand Smoke Exposure: No - Caffeine Use Caffeine Use: Reports: None - Recreational Drug Use Recreational Drug Use: No Review of Systems - Review of Systems Review Of Systems: See Below ED EXAM, GENERAL - Physical Exam Exam: See Below Course - Vital Signs Last Recorded V/S: Last Vital Signs Temp 97.6 F 04/22/21 01:28 Pulse 14 L 04/22/21 01:28 Resp 16 04/22/21 01:28 BP 116/69 04/22/21 01:28 Pulse Ox 97 04/22/21 01:28 - Orders/Labs/Meds Orders: Active Orders 24 hr Category Date Time Status Knee 3V Lt [CR] Stat Exams 04/22/21 01:34 Ordered Meds: Medications Discontinued Medications Generic Name Dose Route Start Last Admin Trade Name Angela PRN Reason Stop Dose Admin Ibuprofen 600 mg 04/22/21 01:34 04/22/21 01:39 Ibuprofen 600 Mg Tab PO 04/22/21 01:35 600 mg ONETIME ONE Administration Departure - Departure Time of Disposition: 01:46 Disposition: Home, Self-Care 01 Condition: Good Clinical Impression: Left knee injury, Derangement of left knee ligament - Discharge Information Instructions: Knee Sprain, Adult, [id number], How to Use a Knee Immobilizer, [id number] Referrals: PCP,None [Primary Care Provider] - Additional Instructions: You were seen and evaluated in ER today secondary to injury to your left knee. You will be placed in a knee immobilizer to help with any ligamentous injury that may have occurred. The x-ray does not reveal any bony injury or fracture. You will be given a prescription for ibuprofen to assist with your pain and discomfort. Please make an appointment to follow-up with orthopedic surgery if the pain should continue for more than 1 week. You can weight-bear as tolerated. [facility] - Orthopedic Clinic Professional Building [address] [place] [address], [address] [place] [address] The following information is given to patients seen in the emergency department who are being discharged to home. This information is to outline your options for follow-up care. We provide all patients seen in our emergency department with a follow-up referral. The need for follow-up, as well as the timing and circumstances, are variable depending upon the specifics of your emergency department visit. If you don't have a primary care physician on staff, we will provide you with a referral. We always advise you to contact your personal physician following an emergency department visit to inform them of the circumstance of the visit and for follow-up with them and/or the need for any referrals to a consulting specialist. The emergency department will also refer you to a specialist when appropriate. This referral assures that you have the opportunity for follow-up care with a specialist. All of these measure are taken in an effort to provide you with optimal care, which includes your follow-up. Under all circumstances we always encourage you to contact your private physician who remains a resource for coordinating your care. When calling for follow-up care, please make the office aware that this follow-up is from your recent emergency room visit. If for any reason you are refused follow-up, please contact the [facility] Emergency Department at and asked to speak to the emergency department charge nurse. [facility] [address] [place] [address] [place] [address] Sepsis Event Note (ED) - Evaluation Sepsis Screening Result: No Definite Risk - Focused Exam Vital Signs: Vital Signs Temp Pulse Resp BP Pulse Ox 04/22/21 01:28 97.6 F 14 L 16 116/69 97 - My Orders Last 24 Hours: My Active Orders 04/22/21 01:34 Knee 3V Lt [CR] Stat - Assessment/Plan Last 24 Hours: My Active Orders 04/22/21 01:34 Knee 3V Lt [CR] Stat
--- NOTE | 2021-04-22 02:02 | CR ---
Indication: Pain after fall Technique: Three views left knee Comparison: None Findings: Bones: Alignment is normal. No fractures or bone lesions. Joint spaces: Unremarkable. Soft tissues: Unremarkable. Impression: Negative. Dictated by Arianna Garg MD @ 04/22/2021 2:00:51 AM (Electronically Signed)
== END 2021-04-22 02:37 | disposition home or self-care (01) ==
LOC: MW.ED 00:58
DX: S89.92XA Unspecified injury of left lower leg, initial encounter (principal); M23.92 Unspecified internal derangement of left knee; E66.9 Obesity, unspecified; Z68.41 Body mass index [BMI] 40.0-44.9, adult; Z88.0 Allergy status to penicillin; Z91.011 Allergy to milk products; W01.0XXA Fall on same level from slipping, tripping and stumbling without subsequent striking against object, initial encounter; Y93.02 Activity, running
CPT/HCPCS: 73562; 99283; A9270

== ENCOUNTER 2022-05-21 16:29 | Emergency (ER) | payer BC ==
[2022-05-21] MEDS ORDERED: Ketorolac 30 MG/ML SDV IVPUSH ONE (18:22)
[2022-05-21] MEDS ORDERED: Sodium Chloride 0.9% 1,000 ML IV ONE (18:22)
[2022-05-21] MEDS ORDERED: Ondansetron 4 MG/2 ML SDV IVPUSH ONE (18:22)
[2022-05-21 20:10] LABS: CARBON DIOXIDE,CO2 24.9 mmol/L (21.0-32.0); POTASSIUM,K 3.7 mmol/L (3.5-5.1)
== END 2022-05-21 20:41 | disposition home or self-care (01) ==
LOC: MW.ED 16:29
DX: N30.00 Acute cystitis without hematuria (principal); N93.8 Other specified abnormal uterine and vaginal bleeding; E66.9 Obesity, unspecified; Z68.37 Body mass index [BMI] 37.0-37.9, adult; Z88.0 Allergy status to penicillin; Z91.011 Allergy to milk products
CPT/HCPCS: 36415; 80053; 81001; 84703; 85025; 87086; 93005; 96361; 96374; 96375; 99284; J1885; J2405; J7030

== ENCOUNTER 2024-03-10 12:54 | Observation (INO) | payer BC ==
[2024-03-10 13:37] LABS: APPEARANCE,URINE CLEAR; BILIRUBIN,URINE NEGATIVE (NEGATIVE); COLOR,URINE YELLOW; GLUCOSE,URINE NEGATIVE (NEGATIVE); KETONES,URINE NEGATIVE (NEGATIVE); LEUKOCYTE ESTERASE,URINE NEGATIVE (NEGATIVE); NITRITE,URINE NEGATIVE (NEGATIVE); OCCULT BLOOD,URINE NEGATIVE (NEGATIVE); PH,URINE 6.5 (5.0-8.0); PROTEIN,URINE NEGATIVE (NEGATIVE); UROBILINOGEN,URINE 0.2 EU/dL (<2.0)
== END 2024-03-11 10:37 | disposition home or self-care (01) ==
LOC: MW.OBCHECK 12:54 → MW.OB 15:35
PROVIDERS: ADMIT Obstetrics & Gynecology; ATTEND Obstetrics & Gynecology
DX: R33.9 Retention of urine, unspecified (principal); F32.A Depression, unspecified; F41.9 Anxiety disorder, unspecified; Z88.0 Allergy status to penicillin
CPT/HCPCS: 51702; 76819; 81003; G0378; 99221; 99238

== ENCOUNTER 2024-06-29 07:47 | Inpatient (IN) | payer BC, OTHER ==
[2024-06-29] MEDS ORDERED: Tranexamic Acid in NACL,ISO-OS 1,000 MG in Premix Bag 1 BAG IV PRN (11:48)
[2024-06-29] MEDS ORDERED: Ondansetron 4 MG/2 ML SDV IVPUSH PRN (11:48)
[2024-06-29] MEDS ORDERED: Sodium Chloride 0.9% 10 ML Syringe FLUSH PRN (11:48)
[2024-06-29] MEDS ORDERED: Carboprost Tromethamine 250 MCG/1 mL Vial IM PRN (11:48)
[2024-06-29] MEDS ORDERED: Methylergonovine 0.2 MG/1 ML Amp IM PRN (11:48)
[2024-06-29] MEDS ORDERED: Sodium Chloride 0.9% 2.5 ML Syringe FLUSH PRN (11:48)
[2024-06-29] MEDS ORDERED: Misoprostol 200 MCG Tab PO PRN (11:48)
[2024-06-29] MEDS ORDERED: Water For Irrigation,Sterile 1,000 ML Container IRR PRN (11:48)
[2024-06-29] MEDS ORDERED: Lidocaine 1% 50 ML MDV INJECT PRN (11:48)
[2024-06-29] MEDS ORDERED: Sodium Chloride 0.9% 20 ML SDV IV PRN (11:48)
[2024-06-29] MEDS ORDERED: Oxytocin/0.9 % Sodium Chloride 30 UNIT/500 ML BAG IV SCH (12:00)
[2024-06-29] MEDS ORDERED: ePHEDrine 50 MG/ML SDV IVPUSH PRN (12:01)
[2024-06-29] MEDS ORDERED: dexmedeTOMIDine HCl 200 MCG/2 ML SDV EPIDUR SCH (12:15)
[2024-06-29 12:33] LABS: HEMOGLOBIN 10.8 g/dL (12.0-16.0); MEAN CORPUSCULAR HEMOGLOBIN 31.5 pg (28.0-32.0); MEAN CORPUSCULAR HGB CONC 34.8 g/dL (32.0-36.0); MEAN CORPUSCULAR VOLUME 90.4 fL (83.0-99.0); MEAN PLATELET VOLUME 11.1 fL (9.4-12.3); PLATELET COUNT,PLT 245 K/uL (150-400); RED BLOOD CELL COUNT 3.43 M/uL (4.10-5.30); WHITE BLOOD CELL COUNT,WBC 12.68 K/uL (3.9-11.3)
[2024-06-29] MEDS: Misoprostol 25 MCG (1/4 of 100 MCG) Tab VAG PRN (13:03)
[2024-06-29] MEDS: Lactated Ringers 1,000 ML IV SCH (20:37)
[2024-06-29] MEDS: Butorphanol 2 MG/ML SDV IVPUSH PRN (20:44)
[2024-06-29] MEDS: Ropivacaine HCl/PF 400 MG in Premix Bag 1 BAG EPIDUR SCH (23:56)
[2024-06-30] MEDS: Phenylephrine HCl In 0.9% NaCl 1 MG/10 ML Syringe IVPUSH PRN (01:14)
[2024-06-30] MEDS: Terbutaline 1 MG/ML SDV SUBCUT PRN (01:20)
[2024-06-30] MEDS: Oxytocin/0.9 % Sodium Chloride 30 UNIT/500 ML BAG IV SCH (07:48)
[2024-06-30] MEDS ORDERED: Methylergonovine 0.2 MG/1 ML Amp IM PRN (08:18)
[2024-06-30] MEDS ORDERED: Misoprostol 200 MCG Tab RECTAL PRN (08:18)
[2024-06-30 08:52] LABS: PH,UMBILICAL ARTERIAL 7.204 (7.18-7.38); PH,UMBILICAL VENOUS 7.303 (7.25-7.45)
[2024-06-30] MEDS: Lanolin 100% Cream 7 GM Tube TOP PRN (09:17)
[2024-06-30] MEDS: Benzocaine/Menthol 20%-0.5% Spray 78 GM Cannister TOP PRN (09:17)
[2024-06-30] MEDS: Witch Hazel Medicated Pads 40/Jar TOP PRN (09:17)
[2024-06-30] MEDS: Prenatal Multivitamin with Calcium/Folic Acid/Iron Tab PO SCH (09:18)
[2024-06-30] MEDS: Acetaminophen 500 MG Tab PO PRN (09:18)
[2024-06-30] MEDS: Docusate Sodium 100 MG Cap PO PRN (09:18)
[2024-06-30] MEDS: Ferrous Sulfate 325 MG Tab PO SCH (09:18)
[2024-06-30] MEDS: Ibuprofen 800 MG Tab PO PRN (12:25)
[2024-07-01 05:52] LABS: HEMATOCRIT 28.8 % (37.0-47.0); HEMOGLOBIN 9.6 g/dL (12.0-16.0)
== END 2024-07-01 14:50 | disposition home or self-care (01) | DRG 560 ==
LOC: MW.OB 07:47 → OBSVTOIN 06-30 07:47 → MW.OB 06-30 10:39
PROVIDERS: ADMIT Obstetrics & Gynecology; ATTEND Obstetrics & Gynecology
PROC: 10E0XZZ Delivery of Products of Conception, External Approach (ICD-10-PCS; principal; 2024-06-30)
PROC: 0KQM0ZZ Repair Perineum Muscle, Open Approach (ICD-10-PCS; 2024-06-30)
PROC: 3E0R3BZ Introduction of Anesthetic Agent into Spinal Canal, Percutaneous Approach (ICD-10-PCS; 2024-06-30)
PROC: 00HU33Z Insertion of Infusion Device into Spinal Canal, Percutaneous Approach (ICD-10-PCS; 2024-06-30)
DX: O99.214 Obesity complicating childbirth (principal); Z37.0 Single live birth; O98.52 Other viral diseases complicating childbirth; B00.9 Herpesviral infection, unspecified; O70.1 Second degree perineal laceration during delivery; Z3A.39 39 weeks gestation of pregnancy
CPT/HCPCS: 36415; 51702; 59025; 82803; 85014; 85018; 85027; 86592; 86850; 86900; 86901; A9270-GY; J0595; J2371; J2590; J2795; J7120